=== PATIENT | male | born 1990 | race Caucasian/White ===

== ENCOUNTER → 2022-05-09 10:30 | Outpatient (BNVA) | payer OTHER, SELFPAY | PROVIDERS: Visit Provider Urology | DX: Z13.89 Encounter for screening for other disorder (principal) ==

== ENCOUNTER → 2022-06-25 10:12 | Day surgery (SDC) | payer OTHER, SELFPAY ==
[2022-06-20 11:53] VITALS: BMI 32.2
[2022-06-25] MEDS: Lactated Ringers 1,000 ML 50 ML IVCONT ×2 (12:48→13:14)
[2022-06-25 12:51] VITALS: BP 126/103; PULSE 71; RESP 18; TEMP 36.7; O2SAT 97
--- NOTE | 2022-06-25 12:53 | PC.NURSE ---
report given to veronika sheldon at [id number]
--- NOTE | 2022-06-25 14:22 | P.CONAN_ITS ---
HPI - Anesthesia Eval Consult details Narrative: for hydrocele repair PMFSH Active Problems Active Problems: All Active Problems (Updated 06/20/22 @ 11:52 by Sulma Head RN) Hydrocele (Acute) Past Medical History Medical History JEVON on CPAP Family History Family history of problems with anesthesia: No Surgical History Surgical History (Updated 06/25/22 @ 12:52 by [place] Valentin RN) [place] teeth extracted History of Problems with Anesthesia: No Social History Social History Are you a primary human services care specialist to a significant other at home: No Do you presently have visiting nurse or other home services: No Patient Tobacco Use Status: Never used Tobacco Use of substances other than those prescribed or required for medical reasons: Yes Substance Use Frequency: Daily Have you been hit, kicked, punched, or otherwise hurt by someone within the past year? If so, by whom?: No Are you DNR?: No Advance Directives: No Advance Directives Information Provided: Yes Advance Directives on File: No Recently lost weight without trying: No Eating poorly because of decreased appetite: No Nutrition Risks: No Nutritional Risk Meds Allergies Allergy/AdvReac Type Severity Reaction Status Date / Time amoxicillin Allergy Severe throat Verified 06/25/22 12:52 swelling Home Medications Medication Instructions Recorded Confirmed Last Taken Type No Known Home Meds 06/20/22 06/20/22 Unknown History Exam Exam Date and Time: June 25, 2022 142 Height,Weight and Vital Signs: Height 6 ft 4 in Weight 120.202 kg Last Vital Signs Temp 98.1 F 06/25/22 12:51 Pulse 71 06/25/22 12:51 Resp 18 06/25/22 12:51 BP 126/103 H 06/25/22 12:51 Pulse Ox 97 06/25/22 12:51 O2 Del Method Room Air 06/25/22 12:51 Airway Mallampati Class: I TM Dist: >3cm Neck ROM: Full Heart: ok Lungs: ok Assessment and Plan Assessment Anesthesia Assessment: Anesthesia Plan Discussed and Chart Reviewed Final Anesthetic Review Family History of Problems with Anesthesia: No History of Problems with Anesthesia: No NPO: Yes ASA Class: III Final Preanesthetic Review: No Changes in Pt Med Stat, Meds/Allgs Chart Reviewed, Consent Obtained/Reviewed and Anes Risks/Benef Reviewed Patient Risk: Intermediate Procedure Risk: Low Anesthetic Plan Anesthetic Plan: GA and Agree w/ Assess. and Plan Disposition: Standard PACU
[2022-06-25 15:34] VITALS: BP 115/73; PULSE 64; RESP 16; TEMP 36.3; O2SAT 95
[2022-06-25 15:39] VITALS: BP 121/76; PULSE 59; RESP 16; O2SAT 97
[2022-06-25 15:44] VITALS: BP 125/75; PULSE 67; RESP 16; O2SAT 97
[2022-06-25 15:49] VITALS: BP 118/85; PULSE 64; RESP 16; O2SAT 97
[2022-06-25 16:04] VITALS: BP 121/73; PULSE 68; RESP 16; TEMP 36.3; O2SAT 99
--- NOTE | 2022-06-25 17:06 | P.OP_ITS ---
Operative Note Operative Note Date of Service: 06/25/22 Narrative: PreOperative Diagnosis: Large right hydrocele Post Operative Diagnosis: Large right hydrocele Procedure: Hydrocelectomy Surgeon: Dr Kb Espinal Anesthesia: General Indications for procedure: Large right hydrocele with persistent discomfort Procedure: After informed consent was verified the patient was brought to the operating room and placed in a supine position. Anesthesia was administered per protocol. Patient was appropriately shaved and genitals were prepped and draped in sterile fashion. Safety pause time-out was performed. Antibiotics being given. Local anesthetic was infiltrated under the skin in a horizontal fashion on the scrotum. Skin incision was made using a blade through the subdermal layer. The tunica around the testicle was elevated and dissected free from surrounding tissue. The avascular plane around the tunica was entered and using a wet sponge blunt dissection was performed. Any small bleeding perforators were cauterized. The testicle was delivered out of the scrotum and opened in a longitudinal fashion.. Fluid was removed. Approximately 250 cc. The testicle sac was inverted. Excess thickened sac was dissected and removed using a Thunderbeat cautery instrument to minimize porst procedure bleeding. A bottle neck procedure was performed to approximate edges using a running 3-0 Vicryl suture. Skin edges of the tunica were cauterized carefully in order to try to minimize postprocedure hematoma. Small accessory appendices were removed from the head of epididymis. The testicle with resected sac was placed back into a dependent portion of the scrotum. Overlying skin fascia layer was closed with a running 3-0 Vicryl sutu re. Skin was closed with interrupted 4-0 chromic sutures. Soft fluff sponges were placed with mesh pants as dressing. Local anesthetic was placed in inguinal cord for post procedure pain relief. Patient tolerated procedure well was extubated in operating room transferred in stable condition to the recovery area Pathology: Hydrocele sac Drains: []
== END | disposition home or self-care (01) ==
PROVIDERS: Visit Provider Urology
PROC: (CPT 55060; principal; 2022-06-25 12:10)
DX: N43.3 Hydrocele, unspecified (principal)
CPT/HCPCS: 55040; 88302; J1956; J2795; J3010